=== PATIENT | female | born 1965 | race Caucasian/White ===

== ENCOUNTER 2019-02-02 09:10 | Day surgery (SDC) | payer OTHER ==
[~2019-02-02] VITALS: Ht 157.5 cm; Wt 61.2 kg
[2019-02-02] MEDS ORDERED: LIDOCAINE 2% 100 MG/5 ML UJET TP ONE (12:00)
[2019-02-02] MEDS ORDERED: fentaNYL 0.05 MG/ML VIAL ONE (12:00)
[2019-02-02] MEDS ORDERED: fentaNYL 0.05 MG/ML VIAL IVP ONE (13:40)
== END 2019-02-02 12:40 | disposition home or self-care (01) ==
LOC: MOR 09:10 → MMU 10:16 → MOR 12:40
PROVIDERS: ATTEND Internal Medicine Gastroenterology
DX: Z12.11 Encounter for screening for malignant neoplasm of colon (principal); K57.30 Diverticulosis of large intestine without perforation or abscess without bleeding; E11.9 Type 2 diabetes mellitus without complications; E78.00 Pure hypercholesterolemia, unspecified; I10 Essential (primary) hypertension; Z79.84 Long term (current) use of oral hypoglycemic drugs; Z79.899 Other long term (current) drug therapy
CPT/HCPCS: 45378; J3010